=== PATIENT | male | born 1965 | race Caucasian/White ===

== ENCOUNTER 2022-09-15 20:00 | Outpatient (CLI) | payer MEDICAID, SELFPAY | END 2022-09-15 20:01 | disposition home or self-care (01) | LOC: SLEEP 09-16 06:06 | PROVIDERS: PCP Nurse Practitioner Family; Visit Provider Family Medicine | DX: G47.10 Hypersomnia, unspecified (principal) | CPT/HCPCS: 95810 ==

== ENCOUNTER 2022-10-13 08:53 | Outpatient (CLI) | payer MEDICAID, SELFPAY ==
--- NOTE | 2022-10-13 | ECG_ITS ---
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 Interpretive Statements NAME OF STUDY: LEXISCAN SESTAMIBI STRESS TEST INDICATION: [Chest Pain] Procedure: At the baseline, the blood pressure was 141/82 mmHg with a heart rate of 76 bpm. The electrocardiogram showed normal sinus rhythm, normal axis with normal ST and T's. The Lexiscan was infused over a period of 20 seconds. A total of 0.4 mg of Lexiscan was infused. The stress phase was continued for a total of 5 minutes. Heart rate was at the end of stress phase was 104 bpm and a blood pressure of 144/79 mmHg. The EKG at the peak infusion revealed normal sinus rhythm with no significant ST-T wave changes. Sestamibi was injected 20 seconds after the Lexiscan infusion. Blood pressure at the end of recovery phase was 139/73 mmHg with a heart rate of 104 bpm. Conclusion: 1. Normal EKG response to Lexiscan infusion 2. No Lexiscan induced chest pain or cardiac arrhythmia. 3. Normal blood pressure and heart rate response. 4. Sestamibi/sestamibi perfusion scan pending; see separate report. Electronically Signed On 10-15-2022 18:49:46 BUS CLEANER by Deuce Vanegas M.D. [id number]
[2022-10-13 09:29] VITALS: BMI 23.6
--- NOTE | 2022-10-13 09:30 | NMCV_ITS ---
NM aurelia perf SPECT r/s* [id number] Giuseppe Shay Age: 57 Gender: M : 1965 Exam Date: 10/13/2022 10:39 Ordering Phys: Deuce Vanegas M.D ([email or web address]) Technologist: FIFI Silver Exam Location: [facility] Indications: CHEST PAIN STRESS TEST Please [facility] IMAGE PROTOCOL Rest/Stress 1 Lexiscan Day Radiopharmaceutical Dose (mCi) Administration Site Administered by Rest: Tc-99m IV FIFI Kumar Sestamibi Stress:Tc-99m 32.7 IV FIFI Kumar Sestamibi Rest: 13-Oct-2022 60 Discovery 630 Stress: 13-Oct-2022 30 Discovery 630 0.4mg Lexiscan. Images obtained in supine and prone position. SPECT RESULTS Technical Quality: Excellent Raw Data Analysis: Normal Image Corrections: No attenuation or motion correction applied Summed Stress Score: 0 Summed Rest Score: 0 Summed Difference Score: 0 PERFUSION FINDINGS SPECT images demonstrate homogeneous tracer distribution throughout the myocardium. FUNCTIONAL RESULTS (calculated via Gated SPECT) Stress Image LV EF (%): 87 Stress EDV (mL):52 TID: 1.08 Stress ESV (mL):7 FUNCTIONAL FINDINGS: There is normal left ventricular systolic function. IMPRESSIONS 1. Normal myocardial perfusion imaging with no evidence of ischemia. 2. LV systolic function is normal. Deuce Vanegas MD (Electronically Signed) Final Date: 13 October 2022 12:31 S
[2022-10-13] MEDS: regadenoson 0.4 Mg/5 ml Syringe IVP (11:10)
[2022-10-13 11:23] VITALS: BP 136/87; PULSE 62
== END 2022-10-13 08:54 | disposition home or self-care (01) ==
LOC: CDL 08:58
PROVIDERS: PCP Nurse Practitioner Family; Visit Provider Internal Medicine
DX: R07.9 Chest pain, unspecified (principal)
CPT/HCPCS: 36415; 78452; 93017; 96374; A9500; J2785

== ENCOUNTER 2022-10-14 09:01 | Outpatient (CLI) | payer MEDICAID, SELFPAY ==
--- NOTE | 2022-10-14 09:30 | USCV_ITS ---
Giuseppe Shay Age: 57 Gender: M : 1965 Exam Date: 10/14/2022 10:10 Ordering Phys: Deuce Vanegas M.D ([email or web address]) Technologist: Elaine Ness [place] [facility] [place] Indication: assess LVF BP: 138 / 87 HR: 82 Rhythm: Sinus Technical Quality: Adequate MEASUREMENTS (Male / Female) Normal Values 2D ECHO LV Diastolic Diameter PLAX 4.1 cm 4.2 - 5.9 / 3.9 - 5.3 cm LV Systolic Diameter PLAX 2.0 cm IVS Diastolic Thickness 0.9 cm 0.6 - 1.0 / 0.6 - 0.9 cm IVS Systolic Thickness 1.5 cm LVPW Diastolic Thickness 0.7 cm 0.6 - 1.0 / 0.6 - 0.9 cm LVPW Systolic Thickness 1.7 cm LVOT Diameter 2.0 cm LV Ejection Fraction 2D Teich 82.5 % LV Ejection Fraction MOD 2C 67.5 % LV Ejection Fraction 2C AL 69.2 % LA Diameter 2.2 cm LA Width 2.4 cm LA Height 2.9 cm RA Width 2.9 cm RA Height 3.5 cm Aorta at Sinotubular Diameter 2.6 cm IVC Diameter 1.2 cm M-MODE MV E Point Septal Separation 0.6 cm DOPPLER AV Peak Velocity 118.0 cm/s LVOT Peak Velocity 85.0 cm/s AV Area Cont Eq vti 2.4 cm squared AV Area Cont Eq pk 2.3 cm squared MV Peak Velocity 88.0 cm/s MV Area PHT 3.7 cm squared Mitral E to A Ratio 1.1 MV E' Velocity 42.5 cm/s Mitral E to MV E' Ratio 10.1 Mitral E to LV E' Lateral Ratio 11.0 Mitral E to LV E' Septal Ratio 9.4 TR Peak Velocity 186.3 cm/s TR Peak Gradient 13.9 mmHg Right Atrial Pressure 5.0 mmHg Pulmonary Artery Systolic Pressu 18.9 mmHg PV Peak Velocity 89.0 cm/s RV Acceleration Time 0.1 s RV Ejection Time 0.3 s RV AcT/ET 0.4 FINDINGS Left Ventricle Left ventricle is normal size. LV systolic function is normal with EF 55 to 60%. No regional wall abnormalities are seen. Right Ventricle Normla in size and function Right Atrium Normal in size Left Atrium Normal in size Mitral Valve Structurally normal mitral valve. Trace mitral regurgitation. Aortic Valve Structurally normal aortic valve. No significant stenosis or regurgitation. Tricuspid Valve Mild tricuspid regurgitation. Pulmonary artery systolic pressure is normal Pulmonic Valve Not well visualized Pericardium Normal Aorta Normla in size IVC Appears to be normal CONCLUSIONS LV systolic function is normal with EF of 55 to 60% Trace mitral regurgitation Mild tricuspid regurgitation. No comparison studies are available Deuce Vanegas MD (Electronically Signed) Final Date: 16 October 2022 18:57 S
--- NOTE | 2022-10-14 10:15 | USCV_ITS ---
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 70.1 Biphasic Biphasic 55.5 SFA Prox 77.8 Biphasic Biphasic SFA Mid Biphasic 65.8 64.9 Biphasic 52.8 SFA Dist 67.5 Biphasic Biphasic 52.0 POP 53.8 Biphasic Biphasic 25.6 COMMUNICATION SKILLS INSTRUCTOR 34.8 Biphasic Monophasic 32.5 DPA N/A 0.8 BRANDAN 0.7 FINDINGS Right COMMUNICATION SKILLS INSTRUCTOR 124 RT DPA not found with hand held Doppler- found minimal flow with ultrasound/Doppler LT COMMUNICATION SKILLS INSTRUCTOR 112 LT DPA - Not found with hand held Doppler or ultrasound Doppler Resting BRANDAN of 0.8 on the right side and 0.7 on the left Mild diffuse plaques in the iliac and femoral arteries bilaterally Moderate diffuse plaques in the popliteal arteries by the CONCLUSIONS Resting BRANDAN 0.7 on the left side, suggesting moderate peripheral artery disease Features of total occlusion of the dorsalis pedis artery on the left side. Resting BRANDAN of 0.8 on the right side, suggesting mild peripheral artery disease Moderate diffuse plaques in the popliteal arteries bilaterally No similar previous studies are available for comparison Dr Sergio Long MD [facility] (Electronically Signed) Final Date: 15 October 2022 13:49 S
== END 2022-10-14 09:02 | disposition home or self-care (01) ==
PROVIDERS: PCP Nurse Practitioner Family; Visit Provider Internal Medicine
DX: I08.1 Rheumatic disorders of both mitral and tricuspid valves (principal); M79.604 Pain in right leg; M79.605 Pain in left leg; I10 Essential (primary) hypertension; R06.02 Shortness of breath
CPT/HCPCS: 93306; 93925

== ENCOUNTER 2023-03-23 12:46 | Emergency (ER) | payer MEDICAID, SELFPAY ==
[2023-03-23 13:20] VITALS: BMI 24.4
--- NOTE | 2023-03-23 13:23 | W.ED.ABDPA2 ---
HPI - Abdominal Pain General: Chief Complaint: Abdominal Pain Stated Complaint: abdominal pain, and bruising Time Seen by Provider: 03/23/23 12:59 History of Present Illness: 57-year-old gentleman presenting with abdominal bruising and distention. Does not recall trauma but noticed some bruising. Mild abdominal tenderness. Some issues of constipation. But overall feels carbajal. Course has worsened. Gradual. No other specific changes in health, exacerbating, or alleviating factors identified. Location: Diffuse Severity: mild Quality: fullness Associated Symptoms: Reports other Review of Systems General: Reports: 10 or more systems reviewed and unremarkable except in HPI and below GI: Reports: other [facility] ED PFSH: Medical History HTN (hypertension) Family History Father Hypertension Mother Hypertension Diabetes Social History Smoking and tobacco status: current every day smoker cigarettes Physical Exam Const: COMMON NORMALS: alert GENERAL APPEARANCE: cooperative and well developed HENMT: COMMON NORMALS: normocephalic and atraumatic HEAD & SCALP: normocephalic and atraumatic Eye: COMMON NORMALS: conjunctivae normal CONJUNCTIVA: Yes conjunctivae normal SCLERA: sclerae normal Neck/C-Spine: COMMON NORMALS: supple GENERAL: Yes trachea midline Resp: COMMON NORMALS: normal respiratory effort EFFORT & INSPECTION: Yes able to speak in complete sentences Cardio: COMMON NORMALS: regular rate and regular rhythm RATE: regular rate RHYTHM: regular rhythm GI: COMMON NORMALS: Soft to palpation PALPATION: Yes Soft to palpation and No Tenderness to palpation present (GI) Extremity: GENERAL: Yes normal exam except as noted and No edema Neuro: COMMON NORMALS: moves all extremities SENSORIUM/ORIENTATION: Yes alert and No Orientation impaired Skin: NARRATIVE SKIN EXAM: Approximately 6 areas of small ecchymosis to the abdominal wall. No other bleeding noted. Course Vital Signs: Vital signs: Vital Signs Temperature 97.9 F 03/23/23 13:49 Pulse Rate 80 03/23/23 13:49 Respiratory Rate 16 03/23/23 13:49 Blood Pressure 161/78 03/23/23 13:49 Pulse Oximetry 95 03/23/23 13:49 Oxygen Delivery Me thod Room Air 03/23/23 13:49 MDM - Abdominal Pain Medical Decision Making 57-year-old gentleman presenting with abdominal fullness and bruising. Does not recall trauma. Exam as above. No acute surgical abdomen. No significant hematologic or metabolic abnormalities to explain symptoms. Mild elevation in creatinine. CT abdomen and pelvis negative for obvious ascites or change regarding fullness and incidental findings discussed with the patient. Subsequently patient recalls having a dog jumped up and put it's paws on him however it is unclear if this explains it. Regardless no bleeding diathesis suspected The results of ED evaluation were discussed with the patient including prescriptions and/or symptomatic cares (if applicable) including appropriate and responsible use, followup plan, and return precautions. The patient verbalized understanding and felt safe for discharge. Medical Records I reviewed the patient's medical records. Lab Data I reviewed the patient's lab results. 03/23/23 13:01 03/23/23 13:01 Labs/Radiology: Laboratory Results WBC 8.3 10^3/uL (4.0-10.0) 03/23/23 13:01 RBC 5.04 10^6/uL (4.1-5.3) 03/23/23 13:01 Hgb 14.5 g/dL (11.7-16.6) 03/23/23 13:01 Hct 44.9 % (42.0-52.0) 03/23/23 13:01 MCV 89.1 fl (80-94) 03/23/23 13:01 MCH 28.8 pg (28.0-34.0) 03/23/23 13:01 MCHC 32.3 g/dL (30.0-36.0) 03/23/23 13:01 RDW 14.8 % (12.1-15.1) 03/23/23 13:01 Plt Count 256 10^3/cmm (130-400) 03/23/23 13:01 MPV 9.6 fL (7.4-10.4) 03/23/23 13:01 Neut % (Auto) 57.5 % 03/23/23 13:01 Lymph % (Auto) 21.9 % 03/23/23 13:01 Deuel % (Auto) 9.7 % 03/23/23 13:01 Eos % (Auto) 9.2 % 03/23/23 13:01 Baso % (Auto) 1.1 % 03/23/23 13:01 Neut # (Auto) 4.75 10^3/uL (1.8-7.7) 03/23/23 13:01 Lymph # (Auto) 1.8 10^3/uL (0.8-4.8) 03/23/23 13:01 Deuel # (Auto) 0.8 10^3/uL (0.2-0.9) 03/23/23 13:01 Eos # (Auto) 0.8 10^3/uL (0.0-0.8) 03/23/23 13:01 Baso # (Auto) 0.1 10^3/uL (0.0-0.1) 03/23/23 13:01 Nucleated RBC % (auto) 0 % 03/23/23 13:01 Nucleated RBCs # 0.0 /100WBC 03/23/23 13:01 PT 13.00 SECONDS (12.1-14.9) 03/23/23 13:01 INR 0.95 (0.8-1.2) 03/23/23 13:01 Sodium 141 mmol/L (136-145) 03/23/23 13:01 Potassium 4.2 mmol/L (3.5-5.1) 03/23/23 13:01 Chloride 104 mmol/L (98-107) 03/23/23 13:01 Carbon Dioxide 28 mmol/L (22-29) 03/23/23 13:01 Anion Gap 13.2 (5-19) 03/23/23 13:01 BUN 14 mg/dL (6-20) 03/23/23 13:01 Creatinine 1.3 mg/dL (0.7-1.2) H 03/23/23 13:01 GFR Calculation 56.5 mL/min (90-130) L 03/23/23 13:01 Glucose 125 mg/dL (65-115) H 03/23/23 13:01 Calculated Osmolality 294 mOsm/kg (285-295) 03/23/23 13:01 Calcium 9.3 mg/dL (8.5-10.5) 03/23/23 13:01 Total Bilirubin 0.2 mg/dL (0.15-1.2) 03/23/23 13:01 AST 14 U/L (0-40) 03/23/23 13:01 ALT 18 U/L (0-41) 03/23/23 13:01 Alkaline Phosphatase 122 U/L (40-130) 03/23/23 13:01 Total Protein 7.2 g/dL (6.6-8.7) 03/23/23 13:01 Albumin 4.0 g/dL (3.5-5.2) 03/23/23 13:01 Globulin 3.2 g/dL (1.3-4.6) 03/23/23 13:01 Lipase 26 U/L (13-60) 03/23/23 13:01 Discharge Plan Discharge Patient Disposition: Home Clinical Impression: Superficial bruising of abdominal wall, Creatinine elevation, Hepatomegaly, Fatty liver, Celiac artery stenosis Condition: Stable Prescriptions: No Action cilostazol 50 mg tablet 50 mg PO BID Qty: 180 3RF aspirin 81 mg tablet,delayed release (DR/EC) 81 mg PO DAILY rosuvastatin 10 mg tablet 10 mg PO DAILY tizanidine 4 mg capsule 4 mg PO TID PRN gabapentin 300 mg capsule 300 mg PO TID PRN lisinopril 5 mg tablet 5 mg PO DAILY hydrochlorothiazide 12.5 mg tablet 12.5 mg PO DAILY Farxiga 10 mg tablet 10 mg PO DAILY fluoxetine 40 mg capsule 40 mg PO DAILY amitriptyline 25 mg tablet 25 mg PO DAILY isosorbide dinitrate 30 mg tablet 30 mg PO DAILY Qty: 90 3RF Rx Instructions: allow nitrate-free interval of 12-14 hrs per 24-hr period Discharge Orders: Discharge ED (Routine); Ordered 03/23/23 Ordered By: Zain Figueroa Referrals: Lizeth Zazueta FNP [Primary Care Provider] - Discharge Diet: Advance as tolerated Discharge Activity: Increase activity as tolerated Patient Instructions: Contusion in Adults (ED) Activity Restrictions/Additional Instructions: Thank you for visiting the emergency department. You were seen and evaluated for abdominal bruising and distention. The exact cause of your symptoms is unclear however as discussed does not appear to need hospitalization at this time. Please follow-up with a primary care provider. Return for evidence of bleeding or anything else that you are concerned about and feel needs emergency department evaluation. Incidental findings noted on CT as discussed however enlarged liver with fatty deposits. You also have a small fat-containing umbilical hernia and tiny esophageal hernia. There is some central arterial disease and sclerotic changes of both femoral heads and neck suspicious for infarcts which can be followed with MRI which can be ordered by your primary care provider. Coding Level of Care Code ED Business Office Specialist for Kunal Sanchez
[2023-03-23 13:38] LABS: Alanine Aminotransferase 18 U/L (0-41); Alkaline Phosphatase 122 U/L (40-130); Anion Gap 13.2 (5-19); Aspartate Amino Transferase 14 U/L (0-40); Blood Urea Nitrogen 14 mg/dL (6-20); Calcium 9.3 mg/dL (8.5-10.5); Carbon Dioxide 28 mmol/L (22-29); Chloride 104 mmol/L (98-107); Globulin 3.2 g/dL (1.3-4.6); Glomerular Filtration Rate 56.5 mL/min (90-130); Glucose 125 mg/dL (65-115); Lipase 26 U/L (13-60); Osmolality Calculated 294 mOsm/kg (285-295); Potassium 4.2 mmol/L (3.5-5.1); Sodium 141 mmol/L (136-145); Total Bilirubin 0.2 mg/dL (0.15-1.2); Total Protein 7.2 g/dL (6.6-8.7)
--- NOTE | 2023-03-23 13:40 | CT_ITS ---
WS: [id number] CT ABDOMEN PELVIS TECHNIQUE: Contrast-enhanced CT of the abdomen and pelvis with coronal and sagittal reformatted image s. CLINICAL INFORMATION: swelling, bruising COMPARISON: None. DLP: 633.[address] scans at [facility] use at least one of these dose optimization techniques: automated e xposure control; mA and/or kV adjustment per patient size (includes targeted exams where dose is matc hed to clinical indication); or iterative reconstruction. FINDINGS: Subsegmental atelectasis in the right middle lobe. Bibasilar atelectasis. Hepatomegaly diffuse fatty filtration of the liver. Normal portal vein and splenic vein. Normal spleen. Calcified splenic granul romario. Normal GE junction. Urine distended bladder. Prostate calcification. Normal sigmoid colon. No evidence of high-grade smal l or large bowel obstruction. Small fat-containing umbilical hernia. Adrenal glands are normal. Elana l renal parenchyma enhancement. No hydronephrosis. Mild aortic calcification. Celiac and SMA are patent. Moderate narrowing at the celiac origin. Modera te aortic atheromatous disease with slightly aneurysmal distal abdominal aorta measuring 1.9 cm in AP dimension. No free fluid in the abdomen or pelvis. Sclerotic lesions in both femoral head and necks suspicious f or bony infarcts. This be followed up with MRI. Disc space narrowing L5-S1. IMPRESSION: 1. No acute traumatic findings in the abdomen or pelvis. 2. Moderate hepatomegaly diffuse fatty filtration. 3. Tiny esophageal hernia. 4. Bibasal atelectasis moderate aortic atheromatous disease with slightly aneurysmal distal abdomina l aorta measuring 1.9 x 2.2 cm. 5. Moderate stenosis at the celiac origin. SMA is patent. 6. Sclerotic changes in both femoral heads and neck suspicious for bony infarcts. This can be follow ed up with MRI on elective basis. 7. Small fat-containing umbilical hernia. No herniated bowel.
[2023-03-23 13:49] VITALS: BP 161/78; PULSE 80; RESP 16; TEMP 36.6; O2SAT 95
[2023-03-23] MEDS: iohexol 350 mg/mL 500 mL Btl (per mL) IV (13:58)
[2023-03-23 13:59] LABS: Basophils # 0.1 10^3/uL (0.0-0.1); Basophils % 1.1 %; Eosinophils # 0.8 10^3/uL (0.0-0.8); Eosinophils % 9.2 %; Hematocrit 44.9 % (42.0-52.0); Hemoglobin 14.5 g/dL (11.7-16.6); Lymphocytes # 1.8 10^3/uL (0.8-4.8); Lymphocytes % 21.9 %; Mean Corpuscular HGB Conc 32.3 g/dL (30.0-36.0); Mean Corpuscular Hemoglobin 28.8 pg (28.0-34.0); Mean Corpuscular Volume 89.1 fl (80-94); Mean Platelet Volume 9.6 fL (7.4-10.4); Monocytes # 0.8 10^3/uL (0.2-0.9); Monocytes % 9.7 %; Neutrophils # 4.75 10^3/uL (1.8-7.7); Neutrophils % 57.5 %; Nucleated Red Blood Cells % 0 %; Platelet Count 256 10^3/cmm (130-400); Red Blood Count 5.04 10^6/uL (4.1-5.3); Red Cell Distribution Width 14.8 % (12.1-15.1); White Blood Count 8.3 10^3/uL (4.0-10.0)
[2023-03-23 14:54] LABS: INR 0.95 (0.8-1.2)
== END 2023-03-23 15:26 | disposition home or self-care (01) ==
PROVIDERS: Emergency Medicine; Emergency Provider Emergency Medicine; PCP Nurse Practitioner Family
DX: I77.4 Celiac artery compression syndrome (principal); K76.0 Fatty (change of) liver, not elsewhere classified; R16.0 Hepatomegaly, not elsewhere classified; S30.1XXA Contusion of abdominal wall, initial encounter; X58.XXXA Exposure to other specified factors, initial encounter
CPT/HCPCS: 36415; 74177; 80053; 83690; 85025; 85610; 99285; Q9967

== ENCOUNTER → 2023-05-19 09:59 | Outpatient (BNVA) | payer MEDICAID, SELFPAY | PROVIDERS: PCP Nurse Practitioner Family; Visit Provider Nurse Practitioner Family | DX: I10 Essential (primary) hypertension (principal); R07.9 Chest pain, unspecified; R00.0 Tachycardia, unspecified | CPT/HCPCS: 93005 ==

== ENCOUNTER 2023-10-04 08:06 | Outpatient (CLI) | payer MEDICAID, SELFPAY ==
[2023-10-04 08:40] VITALS: BMI 25.7
--- NOTE | 2023-10-04 08:44 | ECG_ITS ---
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 Interpretive Statements NAME OF STUDY: LEXISCAN SESTAMIBI STRESS TEST INDICATION: [Chest Pain, Central; Shortness of Breath] Procedure: At the baseline, the blood pressure was 148/94 mmHg with a heart rate of 91 bpm. The electrocardiogram showed normal sinus rhythm, normal axis with normal ST and T's. The Lexiscan was infused over a period of 20 seconds. A total of 0.4 mg of Lexiscan was infused. The stress phase was continued for a total of 5 minutes. Heart rate was at the end of stress phase was 101 bpm and a blood pressure of 142/96 mmHg. The EKG at the peak infusion revealed normal sinus rhythm with no significant ST-T wave changes. Sestamibi was injected 20 seconds after the Lexiscan infusion. Blood pressure at the end of recovery phase was 137/91 mmHg with a heart rate of 97bpm. Conclusion: 1. Normal EKG response to Lexiscan infusion 2. No Lexiscan induced chest pain or cardiac arrhythmia. 3. Normal blood pressure and heart rate response. 4. Sestamibi/sestamibi perfusion scan pending; see separate report. 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 [id number]
--- NOTE | 2023-10-04 08:45 | NMCV_ITS ---
NM aurelia perf SPECT r/s* [id number] Giuseppe Shay Age: 58 Gender: M : 1965 Exam Date: 10/04/2023 08:45 Ordering Phys: Deuce Vanegas M.D ([email or web address]) Technologist: FIFI Silver Exam Location: [facility] Indications: CHEST PAIN STRESS TEST Please [facility] IMAGE PROTOCOL Rest/Stress 1 Lexiscan Day Radiopharmaceutical Dose (mCi) Administration Site Administered by Rest: Tc-99m 10.5 IV FIFI Silver Sestamibi Stress:Tc-99m 32.8 IV FIFI Kumar Sestamibi Rest: 04-Oct-2023 60 Discovery 630 Stress: 04-Oct-2023 30 Discovery 630 0.4mg Lexiscan. Images obtained in supine and prone position. SPECT RESULTS Technical Quality: Excellent Raw Data Analysis: Normal Image Corrections: No attenuation or motion correction applied Summed Stress Score: 1 Summed Rest Score: 7 Summed Difference Score: 0 PERFUSION FINDINGS There is small area of reduced radiotracer uptake in the inferior/inferolateral gooden on rest images that improves on stress images. This is consistent with attenuation artifact in these territories. No evidence of ischemia seen. FUNCTIONAL RESULTS (calculated via Gated SPECT) Stress Image LV EF (%): 75 Stress EDV (mL):61 TID: 1.18 Stress ESV (mL):15 FUNCTIONAL FINDINGS: There is normal left ventricular systolic function. IMPRESSIONS 1. Attenuation artifact seen in inferior/inferolateral gooden. No evidence of ischemia 2. LV systolic function is normal Deuce Vanegas MD (Electronically Signed) Final Date: 06 October 2023 12:49 S
[2023-10-04] MEDS: regadenoson 0.4 Mg/5 ml Syringe IVP (10:22)
[2023-10-04] MEDS: aminophylline 25 mg/mL SDV 10 mL IVP (10:45)
[2023-10-04 10:48] VITALS: BP 137/91; PULSE 67
== END 2023-10-04 08:07 | disposition home or self-care (01) ==
LOC: CDL 08:06
PROVIDERS: PCP Nurse Practitioner Family; Visit Provider Internal Medicine
DX: R07.9 Chest pain, unspecified (principal); R06.02 Shortness of breath
CPT/HCPCS: 36415; 78452; 93017; 96374; 96375; A9500; J0280; J2785

== ENCOUNTER → 2024-01-04 12:56 | Outpatient (BNVA) | payer MEDICAID, SELFPAY | PROVIDERS: PCP Nurse Practitioner Family; Referring Provider Nurse Practitioner Family; Visit Provider Physician Assistant | DX: M25.551 Pain in right hip (principal); M25.552 Pain in left hip; M54.16 Radiculopathy, lumbar region; M87.051 Idiopathic aseptic necrosis of right femur; M87.052 Idiopathic aseptic necrosis of left femur | CPT/HCPCS: 73523 ==

== ENCOUNTER → 2024-01-11 13:43 | Outpatient (BNVA) | payer MEDICAID, SELFPAY | PROVIDERS: PCP Nurse Practitioner Family; Visit Provider Orthopaedic Surgery | DX: M54.16 Radiculopathy, lumbar region (principal); M54.9 Dorsalgia, unspecified; M48.062 Spinal stenosis, lumbar region with neurogenic claudication | CPT/HCPCS: 72110 ==

== ENCOUNTER 2024-02-08 11:24 | Outpatient (CLI) | payer MEDICAID, SELFPAY ==
--- NOTE | 2024-02-08 11:45 | MR_ITS ---
WS: [id number] MRI LUMBAR SPINE NONCONTRAST HISTORY: back pain COMPARISON: Lumbar spine radiograph 01/11/2024 TECHNIQUE: Sagittal and axial multisequence imaging is submitted. Reversal the normal cervical lordosis. Small disc osteophyte complexes at C5-6 and C6-7. Component of mild cervical stenosis at C5-6 and C6-7. Mild anterior wedging of T11. No acute vertebral body fracture. Disc spaces are slightly narrowed and desiccated. Conus terminates normally at L1-2 disc level. L1-L2: Mild facet arthritis. No stenosis. L2-L3: Mild annular disc bulging with mild ligamentum flavum and facet arthritis. Mild encroachment u dinora the subarticular recesses. No high-grade stenosis. L3-L4: Moderate annular disc bulging with mild osteophytic ridging and facet arthritis. Mild disc enc roachment upon the ventral thecal sac and subarticular recesses. Slightly greater contact involving t he RIGHT traversing L4 nerve root. Mild central, bilateral subarticular recess and foraminal stenosis . L4-L5: Mild annular disc bulging with a central annular fissure and disc protrusion. Mild subarticula r recess encroachment. Mild disc contact on the traversing L5 nerve roots. Moderate ligamentum flavum and facet arthritis. Fluid in the facet joints. Mild central, subarticular recess and foraminal sten osis. L5-S1: Mild annular disc bulging encroaching upon the ventral thecal sac and subarticular recesses. M ild to moderate bilateral foraminal stenosis. Paravertebral soft tissues are negative. Mild atrophy of the psoas muscles. MR/MR lumbar spine wo con* [id number] IMPRESSION: 1. No high-grade central or foraminal stenosis. 2. L3-4: Mild central, bilateral subarticular recess and foraminal stenosis. S lightly greater contact on the RIGHT traversing L4 nerve root. 3. L4-5: Mild central, subarticular recess and foraminal stenosis. 4. L5-S1: Mild to moderate bilateral foraminal stenosis. 5. L2-3: Mild disc encroachment upon the subarticular recesses.
== END 2024-02-08 11:25 | disposition home or self-care (01) ==
LOC: RAD 11:24
PROVIDERS: PCP Nurse Practitioner Family; Visit Provider Orthopaedic Surgery
DX: M51.36 Other intervertebral disc degeneration, lumbar region (principal); M47.896 Other spondylosis, lumbar region
CPT/HCPCS: 72148

== ENCOUNTER 2024-03-22 14:04 | Outpatient (CLI) | payer MEDICAID, SELFPAY ==
--- NOTE | 2024-03-22 15:09 | XR_ITS ---
WS: [id number] XR ribs LT 2V* [id number] REASON FOR EXAM: L RIB PAIN/FALL FINDINGS: There is an old healed left eighth rib fracture. There is a minimally displaced left anterior sixth r ib fracture which appears acute or subacute. No pneumothorax. No pleural effusion. (Very large left pericardial fat pad.) Chronic linear and reticular interstitial densities in both lower lungs which appear chronic. XR/XR ribs LT 2V* [id number] IMPRESSION: Acute left sixth rib fracture.
== END 2024-03-22 14:05 | disposition home or self-care (01) ==
LOC: RAD 14:13
PROVIDERS: PCP Nurse Practitioner Family; Visit Provider Nurse Practitioner Family
DX: R07.81 Pleurodynia (principal); W19.XXXA Unspecified fall, initial encounter; S22.32XA Fracture of one rib, left side, initial encounter for closed fracture; J98.4 Other disorders of lung
CPT/HCPCS: 71100

== ENCOUNTER 2024-05-07 12:00 | Emergency (ER) | payer MEDICAID, SELFPAY ==
[2024-05-07 12:00] VITALS: BP 108/73; PULSE 91; RESP 17; TEMP 37.9; O2SAT 94; BMI 27.8
--- NOTE | 2024-05-07 12:02 | XRR_ITS ---
PROCEDURE INFORMATION: Exam: XR Chest Exam date and time: 05/07/2024 12:21 PM Age: 58 years old Clinical indication: Cough and dyspnea and shortness of breath; Patient HX: Covid; Additional info: Dyspnea/cough TECHNIQUE: Imaging protocol: Radiologic exam of the chest. Views: 1 view. COMPARISON: CR XR ribs LT 2V* [id number] 03/22/2024 3:12 PM FINDINGS: Lungs: Stable linear scarring in the left lower lobe. No focal consolidation. No pulmonary edema. Pleural spaces: No pleural effusion. No pneumothorax. Heart/Mediastinum: The cardiac silhouette and mediastinal contours are unremarkable. Vasculature: Stable vascular calcifications in the aorta. Bones/joints: Unremarkable for age. XR/XR chest 1V portable [id number] IMPRESSION: 1. No acute cardiopulmonary process. 2. Incidental/nonacute findings are listed in the report.
--- NOTE | 2024-05-07 12:02 | ECG_ITS ---
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 Measurements Intervals [place] Rate: 87 P: 61 VA: 129 QRS: 36 QRSD: 102 T: 50 QT: 336 QTc: 405 Interpretive Statements SINUS RHYTHM POSSIBLE LEFT ATRIAL ENLARGEMENT [-0.1mV P-WAVE IN V1/V2] NONSPECIFIC T-WAVE ABNORMALITY Compared to ECG 05/19/2023 10:05:32 T-wave abnormality now present Sinus tachycardia no longer present Electronically Signed On 05-07-2024 16:51:53 CDT by Deuce Vanegas M.D. [id number]
--- NOTE | 2024-05-07 12:25 | ED_ITS ---
HPI - SOB/Dyspnea 2 General: Chief Complaint: Shortness of Breath/Dyspnea Stated Complaint: sob, covid positive Time Seen by Provider: 05/07/24 12:02 History of Present Illness: HPI Narrative: 58-year-old male presents emergency room complaining of shortness of breath cough myalgias began overnight along with some dizziness. He feels very weak emergency 5. Diabetes mellitus. Mildly hypoxic at times at his doctor's office with [place] of the days prior. Reportedly had an O2 sat at room air and 87 to 91%. He consistently in the low 90s but has not dropped below. This morning he felt very weak and he fell to the floor in the rain difficulty speech vision or swallowing. Associated symptoms: Reports chest congestion; Deny abdominal pain, chest pain or fever(s) Related Data Home Medications Medication Instructions Recorded Confirmed amitriptyline 25 mg tablet 25 mg PO DAILY 09/12/22 02/13/24 aspirin 81 mg tablet,delayed 81 mg PO DAILY 09/12/22 02/13/24 release dapagliflozin propanediol 10 mg 10 mg PO DAILY 09/12/22 02/13/24 tablet (Farxiga) fluoxetine 40 mg capsule 40 mg PO DAILY 09/12/22 02/13/24 gabapentin 300 mg capsule 300 mg PO TID 09/12/22 02/13/24 hydrochlorothiazide 12.5 mg tablet 12.5 mg PO DAILY 09/12/22 02/13/24 lisinopril 5 mg tablet 5 mg PO DAILY 09/12/22 02/13/24 rosuvastatin 10 mg tablet 10 mg PO DAILY 09/12/22 02/13/24 tizanidine 4 mg capsule 4 mg PO TID PRN muscle spams 09/12/22 02/13/24 amlodipine 5 mg tablet 5 mg PO DAILY 09/22/23 02/13/24 hydralazine 25 mg tablet 25 mg PO 3XD 09/22/23 02/13/24 omeprazole 20 mg capsule,delayed 20 mg PO DAILY 09/22/23 02/13/24 release trazodone 100 mg tablet 100 mg PO DAILY 09/22/23 02/13/24 Previous Rx's Medication Instructions Recorded cilostazol 100 mg tablet 100 mg PO BID #180 tabs 05/19/23 isosorbide dinitrate 30 mg tablet See Rx Instructions .Route 11/13/23 .COMPLEX #90 tabs methylprednisolone 4 mg tablets in 4 mg PO DAILY #21 ea 01/04/24 a dose pack (Medrol (Arnel)) methocarbamol 750 mg tablet 750 mg PO TID #30 tabs 04/23/24 albuterol sulfate 90 mcg/actuation 2 inh inhalation Q4H PRN shortness 05/07/24 aerosol inhaler of breath or wheezing #18 grams Allergies Allergy/AdvReac Type Severity Reaction Status Date / Time No Known Allergies Allergy Verified 05/02/24 14:33 Review of Systems 2 Const: Denies: fever(s) or chills Card: Denies: chest pain Resp: Reports: dyspnea, non-productive cough, wheezing and chest congestion GI: Denies: abdominal pain : Denies: dysuria, urinary frequency or urinary urgency Musc: Denies: neck pain or back pain Skin/Breast: Denies: rash PFSH ED 2 PFSH: Medical History HTN (hypertension) Family History Father Hypertension Mother Hypertension Diabetes Social History Smoking and tobacco/nicotine status: current some day tobacco/nicotine user cigarettes Packs smoked per day: 0.5 Years cigarettes smoked: 30 Alcohol intake: never Substance/Drug Use: never Physical Exam 2 Const: GENERAL APPEARANCE: cooperative ORIENTATION/CONSCIOUSNESS: Yes awake, Yes oriented to person, Yes oriented to place and Yes oriented to time HENMT: COMMON NORMALS: normocephalic, atraumatic and hearing grossly normal bilaterally HEAD & SCALP: normocephalic and atraumatic Resp: COMMON NORMALS: normal respiratory effort, No retractions and No use of accessory muscles AUSCULTATION: wheezes Cardio: COMMON NORMALS: regular rate, regular rhythm and No murmurs present (Cardio) RATE: regular rate RHYTHM: regular rhythm GI: COMMON NORMALS: Soft to palpation and No hepatosplenomegaly present A USCULTATION: Yes normoactive bowel sounds PALPATION: Yes Soft to palpation, No Tenderness to palpation present (GI), No Guarding due to palpation present (GI) and Yes No hepatosplenomegaly present Extremity: COMMON NORMALS: normal to inspection, capillary refill normal, no clubbing, cyanosis or edema, no calf tenderness and no pedal edema Neuro: SENSORIUM/ORIENTATION: Yes oriented to person, Yes oriented to place and Yes oriented to time Skin: COMMON NORMALS: no rashes or lesions noted GENERAL SKIN EXAM: no rashes or lesions noted Course 2 Vital Signs: Vital signs: Vital Signs Temperature 100.2 F H 05/07/24 12:00 Pulse Rate 100 05/07/24 16:36 Respiratory Rate 20 H 05/07/24 16:36 Blood Pressure 115/74 05/07/24 16:36 Pulse Oximetry 91 05/07/24 16:36 Oxygen Delivery Me thod Room Air 05/07/24 14:41 MDM - SOB/Dyspnea Medical Decision Making Chest x-ray unremarkable patient does remain well oxygenated with activity. We did a home oxygen evaluation was normal. Actually increased slightly. Not a candidate for home oxygen. We discussed the options of Paxlovid but he is tolerating this fairly well he is on multiple medications ultimately family and patient decided against this. Steroids not indicated as he is not currently on oxygen or requiring it. He was albuterol as needed follow-up with his primary care doctor. Medical Records I reviewed the patient's medical records. Lab Data I reviewed the patient's lab results. 05/07/24 14:00 05/07/24 14:00 Labs/Radiology: Radiology Impressions Chest X-Ray 05/07/24 12:02 IMPRESSION: 1. No acute cardiopulmonary process. 2. Incidental/nonacute findings are listed in the report. Laboratory Results WBC 8.56 10^3/uL (3.29-11.43) 05/07/24 14:00 RBC 4.58 10^6/uL (3.85-5.65) 05/07/24 14:00 Hgb 13.30 g/dL (11.27-16.99) 05/07/24 14:00 Hct 41.7 % (37-53) 05/07/24 14:00 MCV 91.0 fl (82-101) 05/07/24 14:00 MCH 29.0 pg (27-33) 05/07/24 14:00 MCHC 31.9 g/dL (30-55) 05/07/24 14:00 RDW 16.1 % (12.1-15.1) H 05/07/24 14:00 Plt Count 196 10^3/cmm (157-399) 05/07/24 14:00 MPV 9.7 fL (7.4-10.4) 05/07/24 14:00 Neut % (Auto) 67.5 % 05/07/24 14:00 Lymph % (Auto) 13.8 % 05/07/24 14:00 [place] % (Auto) 16.9 % 05/07/24 14:00 Eos % (Auto) 0.5 % 05/07/24 14:00 Baso % (Auto) 0.5 % 05/07/24 14:00 Neut # (Auto) 5.78 10^3/uL (1.8-7.7) 05/07/24 14:00 Lymph # (Auto) 1.2 10^3/uL (0.8-4.8) 05/07/24 14:00 [place] # (Auto) 1.5 10^3/uL (0.2-0.9) H 05/07/24 14:00 Eos # (Auto) 0.0 10^3/uL (0.0-0.8) 05/07/24 14:00 Baso # (Auto) 0.0 10^3/uL (0.0-0.1) 05/07/24 14:00 Nucleated RBC % (auto) 0 % 05/07/24 14:00 Nucleated RBCs # 0.0 /100WBC 05/07/24 14:00 Sodium 136 mmol/L (136-145) 05/07/24 14:00 Potassium 3.7 mmol/L (3.5-5.1) 05/07/24 14:00 Chloride 99 mmol/L (98-107) 05/07/24 14:00 Carbon Dioxide 26 mmol/L (22-29) 05/07/24 14:00 Anion Gap 14.7 (5-19) 05/07/24 14:00 BUN 13 mg/dL (8-23) 05/07/24 14:00 Creatinine 1.4 mg/dL (0.7-1.2) H 05/07/24 14:00 GFR Calculation 51.7 mL/min (90-130) L 05/07/24 14:00 Glucose 113 mg/dL (65-115) 05/07/24 14:00 Calculated Osmolality 283 mOsm/kg (285-295) L 05/07/24 14:00 Calcium 8.7 mg/dL (8.5-10.5) 05/07/24 14:00 Total Bilirubin 0.2 mg/dL (0.15-1.2) 05/07/24 14:00 AST 20 U/L (0-40) 05/07/24 14:00 ALT 18 U/L (0-41) 05/07/24 14:00 Alkaline Phosphatase 112 U/L (40-130) 05/07/24 14:00 Total Protein 6.7 g/dL (6.6-8.7) 05/07/24 14:00 Albumin 3.7 g/dL (3.5-5.2) 05/07/24 14:00 Globulin 3.0 g/dL (1.3-4.6) 05/07/24 14:00 Coronavirus (PCR) Positive (Negative) A 05/07/24 12:50 Influenza A (PCR) Negative (Negative) 05/07/24 12:50 Influenza Type B (PCR) Negative (Negative) 05/07/24 12:50 RSV (PCR) Negative (Negative) 05/07/24 12:50 All radiology interpretation(s) finalized by discharge Discharge Plan Discharge Patient Disposition: Home Clinical Impression: COVID-19 Condition: Stable Prescriptions: New albuterol sulfate 90 mcg/actuation HFA aerosol inhaler 2 inh INHALATION Q4H PRN (Reason: shortness of breath or wheezing) Qty: 18 0RF No Action aspirin 81 mg tablet,delayed release (DR/EC) 81 mg PO DAILY rosuvastatin 10 mg tablet 10 mg PO DAILY tizanidine 4 mg capsule 4 mg PO TID PRN (Reason: muscle spams) gabapentin 300 mg capsule 300 mg PO TID lisinopril 5 mg tablet 5 mg PO DAILY hydrochlorothiazide 12.5 mg tablet 12.5 mg PO DAILY Farxiga 10 mg tablet 10 mg PO DAILY fluoxetine 40 mg capsule 40 mg PO DAILY amitriptyline 25 mg tablet 25 mg PO DAILY cilostazol 100 mg tablet 100 mg PO BID Qty: 180 3RF methylprednisolone [Medrol (Arnel)] 4 mg tablets,dose pack 4 mg PO DAILY Qty: 21 1RF Rx Instructions: Follow Directions on Pack isosorbide dinitrate 30 mg tablet See Rx Instructions .ROUTE .COMPLEX Qty: 90 3RF Dose Instruction: TAKE ONE TABLET BY MOUTH DAILY . ALLOW NITRATE-FREE INTERVAL OF 12-14 HRS PER 24-HR PERIOD Rx Instructions: TAKE ONE TABLET BY MOUTH DAILY . ALLOW NITRATE-FREE INTERVAL OF 12-14 HRS PER 24-HR PERIOD methocarbamol 750 mg tablet 750 mg PO TID Qty: 30 1RF omeprazole 20 mg Capsule,Delayed Release(Dr/Ec) 20 mg PO DAILY amlodipine 5 mg Tablet 5 mg PO DAILY trazodone 100 mg Tablet 100 mg PO DAILY hydralazine 25 mg Tablet 25 mg PO 3XD Discharge Orders: Discharge ED (Routine); Ordered 05/07/24 Ordered By: Curtis Ballesteros Referrals: Lizeth Zazueta FNP [Primary Care Provider] - Discharge Diet: Usual diet Discharge Activity: Resume usual activity Patient Instructions: COVID-19 (Coronavirus Disease 2019) (ED), Opioid Safety, Pain Management Coding Level of Care Code ED Telephone Diaphragm Assembler for Kunal Sanchez
[2024-05-07] MEDS: dexamethasone 10 mg/mL INJ IM (12:46)
[2024-05-07 13:06] VITALS: O2SAT 90; O2SAT 93
[2024-05-07 13:49] LABS: Influenza A NEGATIVE (Negative); Influenza B NEGATIVE (Negative); Respiratory Syncytial Virus Ce NEGATIVE (Negative)
[2024-05-07 14:09] LABS: Basophils % 0.5 %; Eosinophils % 0.5 %; Hematocrit 41.7 % (37-53); Lymphocytes # 1.2 10^3/uL (0.8-4.8); Lymphocytes % 13.8 %; Mean Corpuscular HGB Conc 31.9 g/dL (30-55); Mean Platelet Volume 9.7 fL (7.4-10.4); Monocytes # 1.5 10^3/uL (0.2-0.9); Monocytes % 16.9 %; Neutrophils # 5.78 10^3/uL (1.8-7.7); Neutrophils % 67.5 %; Nucleated Red Blood Cells % 0 %; Platelet Count 196 10^3/cmm (157-399); Red Blood Count 4.58 10^6/uL (3.85-5.65); Red Cell Distribution Width 16.1 % (12.1-15.1); White Blood Count 8.56 10^3/uL (3.29-11.43)
[2024-05-07 14:19] LABS: Covid PCR Positive (Negative)
[2024-05-07 14:26] LABS: Alanine Aminotransferase 18 U/L (0-41); Albumin Level 3.7 g/dL (3.5-5.2); Alkaline Phosphatase 112 U/L (40-130); Anion Gap 14.7 (5-19); Aspartate Amino Transferase 20 U/L (0-40); Blood Urea Nitrogen 13 mg/dL (8-23); Calcium 8.7 mg/dL (8.5-10.5); Carbon Dioxide 26 mmol/L (22-29); Chloride 99 mmol/L (98-107); Creatinine Clr Calc Pharmacy 64.6565; Glomerular Filtration Rate 51.7 mL/min (90-130); Glucose 113 mg/dL (65-115); Osmolality Calculated 283 mOsm/kg (285-295); Potassium 3.7 mmol/L (3.5-5.1); Sodium 136 mmol/L (136-145); Total Bilirubin 0.2 mg/dL (0.15-1.2); Total Protein 6.7 g/dL (6.6-8.7)
[2024-05-07 14:41] VITALS: BP 113/74; PULSE 93; RESP 20; O2SAT 91
--- NOTE | 2024-05-07 14:43 | PC.NURSE ---
Nurse went in to round on PT, nurse noticed audible wheezes. Nurse made provider aware, no new orders given.
--- NOTE | 2024-05-07 16:13 | PC.NURSE ---
PT daughter voiced concerns to nurse, nurse notified Dr. Dr. nevarez went into pt room and had a verbal conversation with daughter about pt. Pt and daughter verbalized understanding of conversation and Dr's orders. Daughter and pt did not verbalize any other questions.
[2024-05-07 16:36] VITALS: BP 115/74; PULSE 100; RESP 20; O2SAT 91
== END 2024-05-07 16:45 | disposition home or self-care (01) ==
PROVIDERS: Emergency Provider Family Medicine; PCP Nurse Practitioner Family
DX: U07.1 COVID-19 (principal); Z79.82 Long term (current) use of aspirin; I10 Essential (primary) hypertension; F17.210 Nicotine dependence, cigarettes, uncomplicated
CPT/HCPCS: 0241U; 36415; 71045; 80053; 85025; 93005; 96372; 99285; J1100

== ENCOUNTER 2024-07-02 16:51 | Emergency (ER) | payer MEDICARE, MEDICAID, SELFPAY ==
[2024-07-02 17:05] VITALS: BP 130/78; PULSE 76; RESP 18; TEMP 36.3; O2SAT 95; BMI 26.2
--- NOTE | 2024-07-02 17:53 | CTR_ITS ---
PROCEDURE INFORMATION: Exam: CT Chest With Contrast; Diagnostic Exam date and time: 07/02/2024 6:12 PM Age: 59 years old Clinical indication: Abdominal pain; Generalized; Chest wall pain; Additional info: Abdominal pain w/ distention TECHNIQUE: Imaging protocol: Diagnostic computed tomography of the chest with contrast. Radiation optimization: All CT scans at this facility use at least one of these dose optimization techniques: automated exposure control; mA and/or kV adjustment per patient size (includes targeted exams where dose is matched to clinical indication); or iterative reconstruction. Contrast material: OMNIPAQUE 350; Contrast volume: 45 ml; Contrast route: INTRAVENOUS (IV); COMPARISON: CR XR chest 1V portable [id number] 05/07/2024 12:21 PM RADIATION DOSE METRICS: Total DLP (mGy-cm): 1269.3 FINDINGS: Lungs: There are emphysematous changes at the lung apices. Pleural spaces: Unremarkable. No pneumothorax. No pleural effusion. Heart: Unremarkable. No cardiomegaly. No pericardial effusion. Coronary arteries: Multivessel atherosclerotic disease which involves the coronary arteries. Lymph nodes: Unremarkable. No enlarged lymph nodes. Vasculature: Unremarkable. No aortic aneurysm. Bones/joints: Old/healed fracture through the lateral aspect of the left 6th rib. Soft tissues: Unremarkable. COMMENTS: The presence of pulmonary emphysema on CT is an independent risk factor for lung cancer. In the absence of a history or active diagnosis of lung cancer, it is recommended that this patient with emphysema be evaluated for enrollment in a low dose CT lung cancer screening program. PROCEDURE INFORMATION: Exam: CT Abdomen And Pelvis With Contrast Exam date and time: 07/02/2024 6:12 PM Age: 59 years old Clinical indication: Abdominal pain; Generalized; Chest wall pain; Additional info: Abdominal pain w/ distention TECHNIQUE: Imaging protocol: Computed tomography of the abdomen and pelvis with contrast. Radiation optimization: All CT scans at this facility use at least one of these dose optimization techniques: automated exposure control; mA and/or kV adjustment per patient size (includes targeted exams where dose is matched to clinical indication); or iterative reconstruction. Contrast material: OMNIPAQUE 350; Contrast volume: 45 ml; Contrast route: INTRAVENOUS (IV); COMPARISON: CT abdomen pelvis w con* [id number] 03/23/2023 1:50 PM RADIATION DOSE METRICS: Total DLP (mGy-cm): 1269.3 FINDINGS: Liver: Normal. No mass. Gallbladder and biliary ducts: Normal. No calcified stones. No ductal dilation. Pancreas: Normal. No ductal dilation. Spleen: Subcentimeter peripherally calcified splenic lesion has benign features and is stable from the prior study. Adrenal glands: Normal. No mass. Kidneys and ureters: Normal. No hydronephrosis. Stomach and bowel: Unremarkable. No obstruction. No mucosal thickening. Appendix: A normal appendix is identified. Intraperitoneal space: Unremarkable. No free air. No significant fluid collection. Vasculature: Lower abdominal aorta is ectatic measuring 2.0 x 2.1 cm in the AP/transverse dimension similar to the prior study. Multivessel atherosclerotic disease. There is moderate narrowing at the celiac trunk origin. There is atherosclerotic plaque in the proximal 1.5 cm of the superior mesenteric artery with moderate stenosis. Lymph nodes: Unremarkable. No enlarged lymph nodes. Urinary bladder: Unremarkable as visualized. Reproductive: There are calcifications in the prostate gland. Bones/joints: Degenerative changes are present in the visualized spine. Soft tissues: Unremarkable. CT/CT chest abdpel w/*[id number] IMPRESSION: 1. There are emphysematous changes at the lung apices. 2. Multivessel atherosclerotic disease which involves the coronary arteries. IMPRESSION: No acute findings. 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
--- NOTE | 2024-07-02 17:53 | CTR_ITS ---
PROCEDURE INFORMATION: Exam: CT Neck With Contrast Exam date and time: 07/02/2024 6:12 PM Age: 59 years old Clinical indication: Neck pain; Additional info: Left neck swelling/pain TECHNIQUE: Imaging protocol: Computed tomography of the neck with contrast. Radiation optimization: All CT scans at this facility use at least one of these dose optimization techniques: automated exposure control; mA and/or kV adjustment per patient size (includes targeted exams where dose is matched to clinical indication); or iterative reconstruction. Contrast material: OMNIPAQUE 350; Contrast volume: 55 ml; Contrast route: INTRAVENOUS (IV); COMPARISON: CT chest abdpel w/*[id number] 07/02/2024 6:12 PM RADIATION DOSE METRICS: Total DLP (mGy-cm): 220.1 FINDINGS: Salivary glands: Left submandibular gland sialolith. The remaining right submandibular gland and parotid glands are normal. Teeth: The patient is edentulous. Left maxillary sinus mucosal polyp versus retention cysts. Pharynx: Unremarkable. No significant tonsillar enlargement. Prevertebral and retropharyngeal spaces: Unremarkable. Larynx: Unremarkable. Epiglottis is normal. Thyroid: Normal. No enlarged or calcified nodules. Trachea: Visualized trachea is unremarkable. Lungs: Unremarkable as visualized. Lymph nodes: Unremarkable. No lymphadenopathy. Bones/joints: Unremarkable. No acute fracture. Soft tissues: Unremarkable. No significant soft tissue swelling. CT/CT neck w con* [id number] IMPRESSION: No mass or lymphadenopathy within the soft tissues of the neck.
--- NOTE | 2024-07-02 18:08 | ED_ITS ---
HPI - Extremity Problem 2 General: Chief complaint: Extremity Injury, Upper Stated complaint: xray for alot of swelling in shoulder Time Seen by Provider: 07/02/24 17:39 Source: patient Mode of arrival: ambulatory Limitations: no limitations History of Present Illness: Patient is a 59-year-old male with no reportable past medical history at this time who presents with left neck pain and swelling that has been evolving for greater than a month. Patient has never seen a doctor, states he has been having his medical issues worked up recently, and is actually set to have cardiac catheterization tomorrow morning for evaluation of why he is having so much peripheral edema. His complaint at this time primarily is the pain and swelling to his left neck that is causing limited range of motion at the left shoulder, and states that his left breast has been swelling and painful as well. Also notes increasing shortness of breath. Of note, he is also stating his abdomen has been hurting him and has been increasingly distended. No significant recent weight changes that he knows of. Vital stable at this time, breathing 95% on room air. MD Complaint: other (Left neck pain and swelling) Onset (ago): month(s) Pain Consistency: other (Getting worse) Exacerbating factors: range of motion Associated symptoms: Deny chest pain, fever(s) or rash Related Data Home Medications Medication Instructions Recorded Confirmed amitriptyline 25 mg tablet 25 mg PO DAILY 09/12/22 07/02/24 aspirin 81 mg tablet,delayed 81 mg PO DAILY 09/12/22 07/02/24 release dapagliflozin propanediol 10 mg 10 mg PO DAILY 09/12/22 07/02/24 tablet (Farxiga) fluoxetine 40 mg capsule 40 mg PO DAILY 09/12/22 07/02/24 gabapentin 300 mg capsule 300 mg PO TID 09/12/22 07/02/24 hydrochlorothiazide 12.5 mg tablet 12.5 mg PO DAILY 09/12/22 07/02/24 lisinopril 5 mg tablet 5 mg PO DAILY 09/12/22 07/02/24 rosuvastatin 10 mg tablet 10 mg PO DAILY 09/12/22 07/02/24 tizanidine 4 mg capsule 4 mg PO TID PRN muscle spams 09/12/22 07/02/24 amlodipine 5 mg tablet 5 mg PO DAILY 09/22/23 07/02/24 hydralazine 25 mg tablet 25 mg PO 3XD 09/22/23 07/02/24 omeprazole 20 mg capsule,delayed 20 mg PO DAILY 09/22/23 07/02/24 release trazodone 100 mg tablet 100 mg PO DAILY 09/22/23 07/02/24 Previous Rx's Medication Instructions Recorded isosorbide dinitrate 30 mg tablet See Rx Instructions .Route 11/13/23 .COMPLEX #90 tabs methylprednisolone 4 mg tablets in 4 mg PO DAILY #21 ea 01/04/24 a dose pack (Medrol (Arnel)) methocarbamol 750 mg tablet 750 mg PO TID #30 tabs 04/23/24 albuterol sulfate 90 mcg/actuation 2 inh inhalation Q4H PRN shortness 05/07/24 aerosol inhaler of breath or wheezing #18 grams cilostazol 100 mg tablet 100 mg PO BID #180 tabs 06/19/24 cyclobenzaprine 5 mg tablet 5 mg PO BID PRN muscle spasm #10 07/02/24 tabs prednisone 20 mg tablet 60 mg (3 x 20 mg) PO ONCE 5 days 07/02/24 #15 tabs Allergies Allergy/AdvReac Type Severity Reaction Status Date / Time No Known Allergies Allergy Verified 07/02/24 10:32 Review of Systems 2 General: Reports: 10 or more systems reviewed and unremarkable except in HPI and below Const: Denies: fever(s), chills or fatigue Eyes: Denies: change in vision ENMT: Denies: throat pain, ear or mastoid pain or nasal discharge Card: Denies: chest pain, palpitations, swelling of feet/ankles or lightheadedness Resp: Reports: dyspnea; Denies: productive cough or wheezing GI: Reports: abdominal pain and bloating; Denies: nausea, vomiting, diarrhea or constipation : Denies: flank pain, difficulty urinating, dysuria or urinary frequency Musc: Reports: neck pain (With neck swelling), joint pain (Left shoulder pain), limited range of motion and other (Left breast pain and swelling); Denies: back pain Skin/Breast: Denies: rash Neuro: Denies: headache(s), numbness in extremities or weakness in extremities PFSH ED 2 PFSH: Medical History HTN (hypertension) Family History Father Hypertension Mother Hypertension Diabetes Social History Smoking and tobacco/nicotine status: current some day tobacco/nicotine user cigarettes Packs smoked per day: 0.5 Years cigarettes smoked: 30 Alcohol intake: never Substance/Drug Use: never Physical Exam 2 Const: COMMON NORMALS: no acute distress, patient oriented x3, no limitations and alert GENERAL APPEARANCE: cooperative HENMT: COMMON NORMALS: normocephalic, atraumatic, moist oral mucous membranes and oropharynx normal HEAD & SCALP: normocephalic and atraumatic Eye: COMMON NORMALS: EOMs intact bilaterally and conjunctivae normal C ONJUNCTIVA: Yes conjunctivae normal Neck/C-Spine: COMMON NORMALS: full ROM GENERAL: Yes trachea midline O THER: Soft tissue swelling to patient's left proximal trapezius muscle, area is tender to palpation. Chest: OTHER: Left breast mildly edematous compared to right, diffusely tender to palpation. No nipple discharge. No axillary lymphadenopathy Resp: COMMON NORMALS: normal respiratory effort, No retractions, No use of accessory muscles and clear to auscultation bilaterally EFFORT & INSPECTION: Yes able to speak in complete sentences AUSCULTATION: clear to auscultation bilaterally Cardio: COMMON NORMALS: regular rate, regular rhythm, S1 normal heart sound present, S2 normal heart sound present and No murmurs present (Cardio) RATE: regular rate RHYTHM: regular rhythm HEART SOUNDS: S1 normal heart sound present and S2 normal heart sound present GI: COMMON NORMALS: non-tender and no masses INSPECTION: Yes abdominal distension Back/Pelvis: COMMON NORMALS: no thoracic nor lumbar tenderness and thoraco- lumbar ROM normal Extremity: COMMON NORMALS: no joint enlargement and no clubbing, cyanosis or edema NARRATIVE EXTREMITY EXAM: Pain with range of motion of the left shoulder, normal to inspection Neuro: COMMON NORMALS: patient oriented x3, moves all extremities, no focal motor deficits and no sensory deficits noted SENSORIUM/ORIENTATION: Yes alert Skin: COMMON NORMALS: no rashes or lesions noted GENERAL SKIN EXAM: no rashes or lesions noted Course 2 Vital Signs: Vital signs: Vital Signs Temperature 97.4 F L 07/02/24 17:05 Pulse Rate 76 07/02/24 17:05 Respiratory Rate 18 07/02/24 17:05 Blood Pressure 130/78 07/02/24 17:05 Pulse Oximetry 95 07/02/24 17:05 Oxygen Delivery Me thod Room Air 07/02/24 17:05 MDM - Extremity (Nontraumatic) Medical Decision Making Patient present with left shoulder pain and swelling radiating to her left chest and left arm. Has cardiac cath scheduled for tomorrow, has never seen Dr. Currently is undergoing workup from cardiology amongst primary care and other specialist. Vitals normal on arrival, his condition has been stable throughout ED course. There was a swelling and pain noted on physical examination, normal cardiopulmonary auscultation. CT of neck did not demonstrate any mass within the soft tissue or lymphadenopathy, no other abnormalities. CT of chest abdomen pelvis showing emphysema at the apices of the lungs, likely explaining patient's shortness of breath that is chronic. Also to note is the multi vessel atherosclerotic disease, he does have his cardiac cath scheduled for tomorrow. His lab work was all normal including a negative BNP, normal LFTs, and normal hemoglobin and hematocrit. Shortness of breath likely explained by the emphysema, however his pain at this time seems to be more musculoskeletal due to the negative workup and reproducible tenderness to palpation of the area. For this, will treat with steroids and muscle relaxers. Also plan to follow-up tomorrow for the catheterization as planned, return precautions given in the meantime. Lab Data 07/02/24 18:06 07/02/24 18:06 Radiology Impressions Chest/Abdomen/Pelvis CT 07/02/24 17:53 IMPRESSION: 1. There are emphysematous changes at the lung apices. 2. Multivessel atherosclerotic disease which involves the coronary arteries. IMPRESSION: No acute findings. 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 Neck CT 07/02/24 17:53 IMPRESSION: No mass or lymphadenopathy within the soft tissues of the neck. Laboratory Results WBC 7.43 10^3/uL (3.29-11.43) 07/02/24 18:06 RBC 5.20 10^6/uL (3.85-5.65) 07/02/24 18:06 Hgb 15.00 g/dL (11.27-16.99) 07/02/24 18:06 Hct 46.2 % (37-53) 07/02/24 18:06 MCV 88.8 fl (82-101) 07/02/24 18:06 MCH 28.8 pg (27-33) 07/02/24 18:06 MCHC 32.5 g/dL (30-55) 07/02/24 18:06 RDW 15.0 % (12.1-15.1) 07/02/24 18:06 Plt Count 260 10^3/cmm (157-399) 07/02/24 18:06 MPV 9.8 fL (7.4-10.4) 07/02/24 18:06 Neut % (Auto) 58.3 % 07/02/24 18:06 Lymph % (Auto) 22.5 % 07/02/24 18:06 [place] % (Auto) 12.0 % 07/02/24 18:06 Eos % (Auto) 5.7 % 07/02/24 18:06 Baso % (Auto) 1.1 % 07/02/24 18:06 Neut # (Auto) 4.34 10^3/uL (1.8-7.7) 07/02/24 18:06 Lymph # (Auto) 1.7 10^3/uL (0.8-4.8) 07/02/24 18:06 [place] # (Auto) 0.9 10^3/uL (0.2-0.9) 07/02/24 18:06 Eos # (Auto) 0.4 10^3/uL (0.0-0.8) 07/02/24 18:06 Baso # (Auto) 0.1 10^3/uL (0.0-0.1) 07/02/24 18:06 Nucleated RBC % (auto) 0 % 07/02/24 18:06 Nucleated RBCs # 0.0 /100WBC 07/02/24 18:06 ESR 23 mm/hr (0-10) H 07/02/24 18:06 Sodium 139 mmol/L (136-145) 07/02/24 18:06 Potassium 3.4 mmol/L (3.5-5.1) L 07/02/24 18:06 Chloride 102 mmol/L (98-107) 07/02/24 18:06 Carbon Dioxide 26 mmol/L (22-29) 07/02/24 18:06 Anion Gap 14.4 (5-19) 07/02/24 18:06 BUN 10 mg/dL (8-23) 07/02/24 18:06 Creatinine 1.1 mg/dL (0.7-1.2) 07/02/24 18:06 GFR Calculation 68.1 mL/min (90-130) L 07/02/24 18:06 Glucose 103 mg/dL (65-115) 07/02/24 18:06 Calculated Osmolality 287 mOsm/kg (285-295) 07/02/24 18:06 Calcium 9.5 mg/dL (8.5-10.5) 07/02/24 18:06 Total Bilirubin 0.3 mg/dL (0.15-1.2) 07/02/24 18:06 AST 18 U/L (0-40) 07/02/24 18:06 ALT 17 U/L (0-41) 07/02/24 18:06 Alkaline Phosphatase 132 U/L (40-130) H 07/02/24 18:06 NT-Pro-B Natriuret Pep 80 pg/mL (0-125) 07/02/24 18:06 Total Protein 7.5 g/dL (6.6-8.7) 07/02/24 18:06 Albumin 4.0 g/dL (3.5-5.2) 07/02/24 18:06 Globulin 3.5 g/dL (1.3-4.6) 07/02/24 18:06 All radiology interpretation(s) finalized by discharge Discharge Plan Discharge Patient Disposition: Home Clinical Impression: Neck muscle strain Qualifiers: Encounter type: initial encounter Qualified Code(s): S16.1XXA - Strain of muscle, fascia and tendon at neck level, initial encounter Emphysema of lung Qualifiers: Emphysema type: unspecified Qualified Code(s): J43.9 - Emphysema, unspecified Condition: Stable Prescriptions: New prednisone 20 mg tablet 60 mg PO ONCE 5 Days Qty: 15 0RF cyclobenzaprine 5 mg tablet 5 mg PO BID PRN (Reason: muscle spasm) Qty: 10 0RF No Action aspirin 81 mg tablet,delayed release (DR/EC) 81 mg PO DAILY rosuvastatin 10 mg tablet 10 mg PO DAILY tizanidine 4 mg capsule 4 mg PO TID PRN (Reason: muscle spams) gabapentin 300 mg capsule 300 mg PO TID lisinopril 5 mg tablet 5 mg PO DAILY hydrochlorothiazide 12.5 mg tablet 12.5 mg PO DAILY Farxiga 10 mg tablet 10 mg PO DAILY fluoxetine 40 mg capsule 40 mg PO DAILY amitriptyline 25 mg tablet 25 mg PO DAILY methylprednisolone [Medrol (Arnel)] 4 mg tablets,dose pack 4 mg PO DAILY Qty: 21 1RF Rx Instructions: Follow Directions on Pack isosorbide dinitrate 30 mg tablet See Rx Instructions .ROUTE .COMPLEX Qty: 90 3RF Dose Instruction: TAKE ONE TABLET BY MOUTH DAILY . ALLOW NITRATE-FREE INTERVAL OF 12-14 HRS PER 24-HR PERIOD Rx Instructions: TAKE ONE TABLET BY MOUTH DAILY . ALLOW NITRATE-FREE INTERVAL OF 12-14 HRS PER 24-HR PERIOD methocarbamol 750 mg tablet 750 mg PO TID Qty: 30 1RF cilostazol 100 mg tablet 100 mg PO BID Qty: 180 3RF omeprazole 20 mg Capsule,Delayed Release(Dr/Ec) 20 mg PO DAILY amlodipine 5 mg Tablet 5 mg PO DAILY trazodone 100 mg Tablet 100 mg PO DAILY hydralazine 25 mg Tablet 25 mg PO 3XD albuterol sulfate 90 mcg/actuation HFA aerosol inhaler 2 inh INHALATION Q4H PRN (Reason: shortness of breath or wheezing) Qty: 18 0RF Discharge Orders: Discharge ED (Routine); Ordered 07/02/24 Ordered By: Jose Ambriz Referrals: Lizeth Zazueta FNP [Primary Care Provider] - Activity Restrictions/Additional Instructions: Muscle relaxers for your neck pain. Steroids. Keep follow-up with cardiology tomorrow for your cardiac cath. Please return with any new or worsening of symptoms. Coding Level of Care Code ED Managing Member for Kunal Sanchez
[2024-07-02 18:18] LABS: Basophils # 0.1 10^3/uL (0.0-0.1); Basophils % 1.1 %; Eosinophils # 0.4 10^3/uL (0.0-0.8); Eosinophils % 5.7 %; Hematocrit 46.2 % (37-53); Lymphocytes # 1.7 10^3/uL (0.8-4.8); Lymphocytes % 22.5 %; Mean Corpuscular HGB Conc 32.5 g/dL (30-55); Mean Corpuscular Hemoglobin 28.8 pg (27-33); Mean Corpuscular Volume 88.8 fl (82-101); Mean Platelet Volume 9.8 fL (7.4-10.4); Monocytes # 0.9 10^3/uL (0.2-0.9); Neutrophils # 4.34 10^3/uL (1.8-7.7); Neutrophils % 58.3 %; Nucleated Red Blood Cells % 0 %; Platelet Count 260 10^3/cmm (157-399); White Blood Count 7.43 10^3/uL (3.29-11.43)
[2024-07-02 18:20] LABS: Erythrocyte Sedimentation Rate 23 mm/hr (0-10)
[2024-07-02] MEDS: iohexol 350 mg/mL 500 mL Btl (per mL) IV (18:24)
[2024-07-02 18:45] LABS: Alanine Aminotransferase 17 U/L (0-41); Alkaline Phosphatase 132 U/L (40-130); Anion Gap 14.4 (5-19); Aspartate Amino Transferase 18 U/L (0-40); Blood Urea Nitrogen 10 mg/dL (8-23); Calcium 9.5 mg/dL (8.5-10.5); Carbon Dioxide 26 mmol/L (22-29); Chloride 102 mmol/L (98-107); Creatinine Clr Calc Pharmacy 79.0898; Globulin 3.5 g/dL (1.3-4.6); Glomerular Filtration Rate 68.1 mL/min (90-130); Glucose 103 mg/dL (65-115); NT Pro B Type Natriuretic Pept 80 pg/mL (0-125); Osmolality Calculated 287 mOsm/kg (285-295); Potassium 3.4 mmol/L (3.5-5.1); Sodium 139 mmol/L (136-145); Total Bilirubin 0.3 mg/dL (0.15-1.2); Total Protein 7.5 g/dL (6.6-8.7)
[2024-07-02] MEDS: cyclobenzaprine 10 mg Tablet 5 MG PO (19:57)
[2024-07-02] MEDS: dexamethasone 10 mg/mL INJ IVP (19:57)
[2024-07-02 20:13] VITALS: BP 138/89; PULSE 73; O2SAT 95
== END 2024-07-02 20:14 | disposition home or self-care (01) ==
PROVIDERS: Emergency Provider Physician Assistant; Family Provider Nurse Practitioner Family; PCP Nurse Practitioner Family
DX: S16.1XXA Strain of muscle, fascia and tendon at neck level, initial encounter (principal); J43.9 Emphysema, unspecified; Z79.82 Long term (current) use of aspirin; F17.210 Nicotine dependence, cigarettes, uncomplicated; I10 Essential (primary) hypertension; X58.XXXA Exposure to other specified factors, initial encounter
CPT/HCPCS: 70491; 71260; 74177; 80053; 83880; 85025; 85651; 96374; 99285; J1100

== ENCOUNTER 2024-07-03 05:47 | Outpatient (CLI) | payer MEDICARE, MEDICAID, SELFPAY ==
--- NOTE | 2024-07-03 06:00 | XACV_ITS ---
Wt: 90 kg BSA: 2.14 m2 Any Known Allergies: No known allergies Gender: Male : 1965 Exam Type: Invasive Peripheral Vascular Procedure(s): Procedure Description: Diagnostic procedure Procedure Description: Peripheral Cath Diagnostic Procedure Procedure Description: Lower extremities' angiography Exam Priority: Routine Abdominal Diagnostic Findings Distal abdominal aorta: Patent. Lower Extremity Diagnostic Findings INDICATION: 59-year-old man with past medical history of smoking and hypertension was been having significant bilateral claudication symptoms. He was started on medical therapy with cilostazol. Despite of that and exercise, continues having worsening symptoms of leg discomfort bilaterally. Left lower extremity is worse than right. Had Doppler ultrasound with abnormal ABIs in the past. Plan for peripheral angiogram with possible intervention. Left lower extremity:Left common iliac artery is patent. Left external iliac artery is patent. Left internal iliac artery is patent. left common femoral artery is patent. Left profunda artery is patent. Left SFA is patent. Left popliteal artery is patent. Below the knee patient has 3 vessel run off. Peroneal artery has diffuse disease. Right lower extremity findings: Right common iliac artery is patent. Right external iliac artery is patent. Right common femoral artery has mild disease. Right profunda artery is patent. Right SFA is patent. Right popliteal artery is patent. Below the know has 2 vessel run off with diffuse disease of peroneal artery. . Conclusions Patent above the knee arteries. Below the knee PAD to be treated medically. Recommendations Medical therapy. Access Site Site: Right Femoral artery Sheath Size: 6 Fr Hemost... Method: Mynx Hemost... Success: Successful Procedure Details Findings Procedure Consent Obtained. Pre-Procedure Time Out. Identified patient by full name and date of as verbalized by the patient/guarantor. Does the consent match the physician's order: Yes. Accurate & Complete Informed Consent: Yes. Inpatient/Outpatient History & Physical on Chart: Yes. If H&P is completed, is and addenduem needed: No; If yes, is the addendum complete: N/A. Visualize and Verify Site with Patient/Guarantor: N/A. Relevant Radiology Images available: N/A. The risks, benefits, and alternatives of sedation and/or procedure were discussed by physician. The patient agrees to continue. Procedure started. Pre OP diagnosis: Lifestyle limiting claudication. PERRLA. Strong, equal hand pier hand bilaterally. Lungs clear x 5 lobes. IV Site on Arrival: 20 gauge in the left anticubital. IV Fluids: 0.9% NaCl at KVO. 0 mL infused prior to photographic laboratory supervisor. Pre Procedural Pulses: bilateral posterior tibial was Doppled. Pre Procedural Pulses: bilateral dorsalis pedis was Doppled. Pre Procedural Pulses: bilateral radial was 2+. Oxygen started at 3liters/min via nasal canula. bilateral groins was prepped with chloroprep then draped in the usual sterile fashion. Physician notified. Baseline sample Acquired. HR: 95 BPM. Physician arrived. Physician scrubbed in. Time out performed with cath team. Lidocaine 1% infiltrated to the right groin. Arterial access obtained with micropuncture set. A 5FrFr UF catheter in over wire. Abdominal aortogram performed in AP @ 10 mL/sec for a total of 30 mL. Catheter positioned aboved the bifurcation of the iliacs. Glidewire inserted. UF catheter Advanced to the left common iliac. Glidewire removed. Left common iliac selected and arteriogram performed at 10 ml/sec for a total of 30 ml. Left common iliac selected and arteriogram performed at 10 ml/sec for a total of 30 ml using digital subtraction of the trifucation vessels. Physician review of films. Catheter removed over the wire. Sheath injected in Right common femoral artery and runoff performed at 10 ml/sec for a total of 30 ml. A Right femoral angiogram was performed to determine safe placement of closure device. A Mynx was successful obtaining hemostatsis at the Right Femoral artery insertion site. Mynx placed without complications. No signs or symptoms of hematoma noted. Sterile dressing applied per usual sterile fashion. EXP 05-14-26 LOT [id number]. Post Procedure: Pulses reassessed and unchanged. PERRLA. Strong, equal hand pier hand bilaterally. No VTE prophylaxis required. Medication waste: Lidocaine- 10 ml Fentanyl- 50 mcg. Heparin- 1000 units. Total IV fluids: 40 mL. Fluoro: 3:03. Contrast type used: Visipaque 320 mgI/mL, 100 mL bottle. [id number]. Post-op diagnosis: Left PT occlusion. Complications: NONE. Estimated blood loss: 5mL-10mL. Responsiveness - Normal response to verbal stimuli; alert and oriented, PERRLA. Airway - Unaffected, no intervention required; spontaneous ventilation. Circulation: W/N/L, pulses unchanged. Nausea/Vomiting: No. Procedure completed. Patient transferred by bed to 1st floor. Admit Source: Out Patient. Vital chart was stopped. Procedure started. Procedure Medications Start: 7:34 AM Stop: 7:34 AM Medication: Versed Amount: 1 mg Route: I.V. Start: 7:34 AM Stop: 7:34 AM Medication: Fentanyl Amount: 50 mcg Route: I.V. Start: 7:41 AM Stop: 7:41 AM Medication: Versed Amount: 1 mg Route: I.V. I, the attending physician, have reviewed and verified all procedure medications. Yes, all medications given per verbal order History/Risk Factors Hypertension: Yes Dyslipidemia: Yes Peripheral Arterial Disease (PAD): Yes Obesity: No Renal Disease: No Tobacco Use: Current/Recent(w/in 1 year) Prior Interventions PCI: No CABG: No Valve Surgery: No Report Signatures Finalized by Deuce Vanegas MD on 07/09/2024 09:32 AM
[2024-07-03] MEDS: aspirin 325 mg Tablet PO (06:10)
[2024-07-03] MEDS: diphenhydrAMINE 50 mg Capsule PO (06:10)
[2024-07-03 06:18] LABS: Basophils % 0.4 %; Eosinophils # 0.2 10^3/uL (0.0-0.8); Eosinophils % 2.8 %; Hematocrit 47.7 % (37-53); Lymphocytes # 0.8 10^3/uL (0.8-4.8); Lymphocytes % 14.8 %; Mean Corpuscular HGB Conc 32.7 g/dL (30-55); Mean Corpuscular Hemoglobin 28.9 pg (27-33); Mean Corpuscular Volume 88.5 fl (82-101); Mean Platelet Volume 10.1 fL (7.4-10.4); Monocytes # 0.2 10^3/uL (0.2-0.9); Monocytes % 2.8 %; Neutrophils # 4.26 10^3/uL (1.8-7.7); Neutrophils % 78.6 %; Nucleated Red Blood Cells % 0 %; Platelet Count 299 10^3/cmm (157-399); Red Blood Count 5.39 10^6/uL (3.85-5.65); Red Cell Distribution Width 14.7 % (12.1-15.1); White Blood Count 5.41 10^3/uL (3.29-11.43)
[2024-07-03 06:23] VITALS: BP 144/84; PULSE 93; RESP 16; TEMP 36.7; O2SAT 94; BMI 27.7
[2024-07-03 06:35] LABS: Anion Gap 14.6 (5-19); Blood Urea Nitrogen 12 mg/dL (8-23); Calcium 8.9 mg/dL (8.5-10.5); Carbon Dioxide 25 mmol/L (22-29); Chloride 104 mmol/L (98-107); Glomerular Filtration Rate 61.6 mL/min (90-130); Glucose 184 mg/dL (65-115); Osmolality Calculated 295 mOsm/kg (285-295); Potassium 3.6 mmol/L (3.5-5.1); Sodium 140 mmol/L (136-145)
--- NOTE | 2024-07-03 07:32 | W.PM.OPSFHP ---
Same Day Surgery H&P Indication for Procedure/HPI DATE OF PROCEDURE: July 03, 2024 CHIEF COMPLAINT/INDICATIONFOR SURGICAL PROCEDURE: Severe lifestyle limiting claudication PREOP DIAGNOSIS: Severe lifestyle limiting claudication PLANNED PROCEDURE: Operation Date: 07/03/24 07:00 Proposed Procedures p Peripheral Diagnostic - Periph Angio(Bilateral) - Deuce Vanegas M.D Possible percutaneous intervention A 59-year-old man with past medical history of smoking and hypertension was been having significant bilateral claudication symptoms. He was started on medical therapy with cilostazol. Despite of that and exercise, continues having worsening symptoms of leg discomfort bilaterally. Left lower extremity is worse than right. Had Doppler ultrasound with abnormal ABIs in the past. Plan for peripheral angiogram with possible intervention. Medications/Allergies* Home Medications Medication Instructions Recorded Confirmed Type amitriptyline 25 mg tablet 25 mg PO DAILY 09/12/22 07/02/24 History aspirin 81 mg tablet,delayed 81 mg PO DAILY 09/12/22 07/02/24 History release dapagliflozin propanediol 10 mg 10 mg PO DAILY 09/12/22 07/02/24 History tablet (Farxiga) fluoxetine 40 mg capsule 40 mg PO DAILY 09/12/22 07/02/24 History gabapentin 300 mg capsule 300 mg PO TID 09/12/22 07/02/24 History hydrochlorothiazide 12.5 mg tablet 12.5 mg PO DAILY 09/12/22 07/02/24 History lisinopril 5 mg tablet 5 mg PO DAILY 09/12/22 07/02/24 History rosuvastatin 10 mg tablet 10 mg PO DAILY 09/12/22 07/02/24 History tizanidine 4 mg capsule 4 mg PO TID PRN muscle spams 09/12/22 07/02/24 History amlodipine 5 mg tablet 5 mg PO DAILY 09/22/23 07/02/24 History hydralazine 25 mg tablet 25 mg PO 3XD 09/22/23 07/02/24 History omeprazole 20 mg capsule,delayed 20 mg PO DAILY 09/22/23 07/02/24 History release trazodone 100 mg tablet 100 mg PO DAILY 09/22/23 07/02/24 History Allergies/Adverse Reactions Allergy/AdvReac Type Severity Reaction Status Date / Time No Known Allergies Allergy Verified 07/03/24 06:20 Current Medications: Generic Name Dose Route Start Last Admin Trade Name Freq PRN Reason Stop Dose Admin Sodium Chloride 1,000 mls @ 50 mls/hr 07/03/24 06:00 07/03/24 06:19 Sodium Chloride 0.9% IV 07/04/24 01:59 Not Given .Q20H ONE Pertinent History/Comorbid Conditions* Medical History (Updated 07/02/24 @ 19:50 by ROMANA Randhawa) HTN (hypertension) Family History (Updated 09/12/22 @ 10:51 by Debra Adam RN) Diabetes Mother Hypertension Father Mother Social History Smoking and tobacco/nicotine status: current some day tobacco/nicotine user cigarettes Packs smoked per day: 0.5 Years cigarettes smoked: 30 Alcohol intake: never Substance/Drug Use: never Pertinent Exam Findings alert, oriented x 3, clear to auscultation bilaterally and regular rate & rhythm Conscious Sedation Assessment PATIENT ASSESSED PRIOR TO SEDATION, WITH NO CHANGE NOTED: Yes AIRWAY EVAL/ANESTHESIA PLAN: normal airway, ASA III, Local Anesthesia, Risks, benefits & alternatives of sedation and/or procedure discussed and Patient agrees to continue as planned ADDITIONAL INFORMATION: Moderate sedation Recommendations Surgery/Procedure today (Peripheral angiogram with possible intervention) Coding Level of Care Code Acute Code for Chg Fwd
--- NOTE | 2024-07-03 08:27 | PC.NURSE ---
Patient came from [employer] lab[employer] to [facility] at 0827 with a right femoral mynx closure. NS to run at 75ml/hr.
[2024-07-03 10:07] VITALS: BP 127/81; PULSE 94
[2024-07-03 11:34] VITALS: BP 112/76
[2024-07-03 12:59] VITALS: BP 129/79; PULSE 85; RESP 24
== END 2024-07-03 14:20 | disposition home or self-care (01) ==
LOC: CCL 05:49 → CSU 08:20
PROVIDERS: PCP Nurse Practitioner Family; Visit Provider Internal Medicine
DX: I73.9 Peripheral vascular disease, unspecified (principal); I10 Essential (primary) hypertension; E78.5 Hyperlipidemia, unspecified; Z79.82 Long term (current) use of aspirin; F17.210 Nicotine dependence, cigarettes, uncomplicated
CPT/HCPCS: 36415; 75625; 75716; 80048; 85025; 96365; 99152; C1760; C1769; C1887; G0269; J1644; J2250; J3010; J7030; Q0163; Q9967

== ENCOUNTER → 2024-07-10 14:09 | Outpatient (BNVA) | payer MEDICARE, MEDICAID, SELFPAY | PROVIDERS: PCP Nurse Practitioner Family; Visit Provider Nurse Practitioner Family | DX: I10 Essential (primary) hypertension (principal) | CPT/HCPCS: 36415; 80048 ==

== ENCOUNTER 2024-08-01 10:16 | Outpatient (CLI) | payer MEDICARE, MEDICAID, SELFPAY ==
--- NOTE | 2024-08-01 10:19 | MM_ITS ---
WS: [id number] BILATERAL 3D TOMOSYNTHESIS DIGITAL DIAGNOSTIC MAMMOGRAPHY WITH CAD CLINICAL INFORMATION: L BREAST MASS HISTORY: Bilateral breast lumps COMPARISON: None. TECHNIQUE: Bilateral CC, MLO, and ML views. FINDINGS: The breasts are composed of heterogeneous fibroglandular density, which can limit the detection of sm all underlying mass lesions. Bilateral dense parenchymal tissue compatible with gynecomastia. Bilateral subareolar dense breast tissue. Ultrasound is pending. ULTRASOUND BREAST BILATERAL TECHNIQUE: Ultrasound bilateral breast focused area of concern. CLINICAL INFORMATION: L BREAST MASS FINDINGS: Ultrasound demonstrates bilateral gynecomastia with dense shadowing parenchymal tissue RIGHT BREAST: Ultrasound subareolar. Dense underlying parenchymal tissue. No focal cystic or solid [place]. No suspicious lesions to target for biopsy. Suggestion of a small 8 x 7 mm lymph node subareola r RIGHT breast near the 11 o'clock position LEFT BREAST: Ultrasound subareolar. Dense underlying parenchymal tissue. No focal cystic or solid les ion to target for biopsy. IMPRESSION MM/MM diag BI tomosynthesis [id number] DENSITY: The breasts are heterogeneously dense, which may obscure small masses. BI-RADS: 2 - Benign. FOLLOW UP: See Report
== END 2024-08-01 10:17 | disposition home or self-care (01) ==
LOC: RAD 10:17
PROVIDERS: PCP Nurse Practitioner Family; Visit Provider Nurse Practitioner Family
DX: N63.42 Unspecified lump in left breast, subareolar (principal); R92.333 Mammographic heterogeneous density, bilateral breasts; R92.30 Dense breasts, unspecified
CPT/HCPCS: 76642; 77062; G0279

== ENCOUNTER → 2024-08-15 13:19 | Outpatient (BNVA) | payer MEDICARE, MEDICAID, SELFPAY | PROVIDERS: PCP Nurse Practitioner Family; Visit Provider Internal Medicine | DX: I73.9 Peripheral vascular disease, unspecified (principal); I10 Essential (primary) hypertension; R07.9 Chest pain, unspecified; F17.210 Nicotine dependence, cigarettes, uncomplicated | CPT/HCPCS: 99214 ==

== ENCOUNTER → 2024-10-09 10:25 | Outpatient (BNVA) | payer MEDICARE, MEDICAID, SELFPAY | PROVIDERS: PCP Nurse Practitioner Family; Visit Provider Student in an Organized Health Care Education/Training Program | DX: M87.051 Idiopathic aseptic necrosis of right femur (principal); M87.052 Idiopathic aseptic necrosis of left femur; M25.552 Pain in left hip; M25.551 Pain in right hip; M54.9 Dorsalgia, unspecified; M48.062 Spinal stenosis, lumbar region with neurogenic claudication; M54.16 Radiculopathy, lumbar region | CPT/HCPCS: 73522; 99213 ==

== ENCOUNTER → 2024-10-15 10:55 | Outpatient (BNVA) | payer MEDICARE, MEDICAID, SELFPAY | PROVIDERS: PCP Nurse Practitioner Family; Visit Provider Nurse Practitioner Family | DX: M79.18 Myalgia, other site (principal); M48.062 Spinal stenosis, lumbar region with neurogenic claudication; M47.26 Other spondylosis with radiculopathy, lumbar region; F17.210 Nicotine dependence, cigarettes, uncomplicated | CPT/HCPCS: 20553; 99214; J1010; J3490 ==

== ENCOUNTER 2024-10-18 14:54 | Outpatient (CLI) | payer MEDICARE, MEDICAID, SELFPAY ==
--- NOTE | 2024-10-18 15:15 | MR_ITS ---
WS: [id number] EXAMINATION: MR hip RT wo con* [id number], MR hip LT wo con* [id number] ORDER DATE: 10/18/2024 3:28 PM COMPARISON: None. HISTORY: Bilateral hip pain CONTRAST: None. TECHNIQUE: Coronal STIR of the Pelvis. Coronal proton density, coronal T1, axial T2 fat sat, axial T1, sagittal T2 fat sat, and sagittal T1 performed of the hip. After contrast, axial T1 fat sat, coronal T1 fat sat, and sagittal T1 fat sat were performed. FINDINGS: Serpiginous decreased T1 and increased T2 signal in both the RIGHT and LEFT femoral heads compatible with avascular necrosis. This extends to the articular surface bilaterally. No significant subchondral collapse. Mild increased T2 signal associated with the areas of avascular necrosis. Normal bone marrow signal in the intratrochanteric regions and proximal femurs. Normal bone marrow signal in the acetabulum bilaterally. Normal pubic rami. Normal visualized soft tissues. Normal bone marrow signal in the bony pelvis and sacrum. No other acute findings. MR/MR hip LT wo con* [id number] IMPRESSION: 1. 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 No significant subchondral collapse.
--- NOTE | 2024-10-18 16:00 | MR_ITS ---
WS: [id number] EXAMINATION: MR hip RT wo con* [id number], MR hip LT wo con* [id number] ORDER DATE: 10/18/2024 3:28 PM COMPARISON: None. HISTORY: Bilateral hip pain CONTRAST: None. TECHNIQUE: Coronal STIR of the Pelvis. Coronal proton density, coronal T1, axial T2 fat sat, axial T1, sagittal T2 fat sat, and sagittal T1 performed of the hip. After contrast, axial T1 fat sat, coronal T1 fat sat, and sagittal T1 fat sat were performed. FINDINGS: Serpiginous decreased T1 and increased T2 signal in both the RIGHT and LEFT femoral heads compatible with avascular necrosis. This extends to the articular surface bilaterally. No significant subchondral collapse. Mild increased T2 signal associated with the areas of avascular necrosis. Normal bone marrow signal in the intratrochanteric regions and proximal femurs. Normal bone marrow signal in the acetabulum bilaterally. Normal pubic rami. Normal visualized soft tissues. Normal bone marrow signal in the bony pelvis and sacrum. No other acute findings. MR/MR hip RT wo con* [id number] IMPRESSION: 1. 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 No significant subchondral collapse.
== END 2024-10-18 14:55 | disposition home or self-care (01) ==
LOC: RAD 14:56
PROVIDERS: Visit Provider Student in an Organized Health Care Education/Training Program
DX: M25.552 Pain in left hip (principal); M87.052 Idiopathic aseptic necrosis of left femur; M25.551 Pain in right hip; M87.051 Idiopathic aseptic necrosis of right femur; R93.7 Abnormal findings on diagnostic imaging of other parts of musculoskeletal system
CPT/HCPCS: 73721

== ENCOUNTER → 2024-10-29 10:59 | Day surgery (SDC) | payer MEDICARE, MEDICAID, SELFPAY ==
--- NOTE | 2024-10-29 11:40 | US_ITS ---
WS: [id number] ULTRASOUND-GUIDED PARACENTESIS CLINICAL INFORMATION: possible ascites COMPARISON: None. Four-quadrant ultrasound. No significant ascites. Insufficient fluid for paracentesis. US/US paracentesis abd w [id number] IMPRESSION: No significant ascites.
[2024-10-29 11:41] VITALS: BP 110/74; PULSE 85; RESP 16; TEMP 36.6; O2SAT 96; BMI 25.7
[2024-10-29 11:57] LABS: Partial Thromboplastin Time 25.4 SECONDS (23.9-36.7)
== END ==
LOC: GILAB 11:07
PROVIDERS: Electrodiagnostic Medicine; Radiology Neuroradiology; PCP Nurse Practitioner Adult Health
DX: R18.8 Other ascites (principal)
CPT/HCPCS: 36415; 49083; 85610; 85730

== ENCOUNTER → 2024-10-30 10:17 | Outpatient (BNVA) | payer MEDICARE, MEDICAID, SELFPAY | PROVIDERS: PCP Nurse Practitioner Adult Health; Visit Provider Nurse Practitioner Family | DX: M54.16 Radiculopathy, lumbar region (principal); M48.062 Spinal stenosis, lumbar region with neurogenic claudication; M47.816 Spondylosis without myelopathy or radiculopathy, lumbar region | CPT/HCPCS: 99213 ==

== ENCOUNTER → 2024-11-05 08:57 | Outpatient (BNVA) | payer MEDICARE, MEDICAID, SELFPAY | PROVIDERS: PCP Nurse Practitioner Adult Health; Visit Provider Student in an Organized Health Care Education/Training Program | DX: M87.051 Idiopathic aseptic necrosis of right femur (principal); M87.052 Idiopathic aseptic necrosis of left femur; Z09 Encounter for follow-up examination after completed treatment for conditions other than malignant neoplasm | CPT/HCPCS: 99214 ==